=== PATIENT | male | born 1990 | race Caucasian/White ===

== ENCOUNTER 2024-01-22 02:11 | Emergency (ER) | payer BC ==
[2024-01-22 02:53] LABS: #Basophils 0.06 10x3/uL (0.0-0.2); %Basophils 0.4 % (0.0-1.0); %Eosinophils 0.9 % (0.0-10.0); %Lymphocytes 16.7 % (21.0-51.0); %Monocytes 6.3 % (0.0-10.0); %Neutrophils 75.4 % (42.0-75.0); Hematocrit 45.5 % (42.0-52.0); Hemoglobin 15.8 g/dL (14.0-18.0); Mean Corpuscular HGB CONC 34.7 g/dL (32.0-36.0); Mean Corpuscular Hemoglobin 31.7 pg (27.0-31.0); Mean Corpuscular Volume 91.2 fL (78.0-98.0); Mean Platelet Volume 10.6 fL (7.4-10.4); Platelet Count 173 10x3/uL (130-400); RBC Distribution Width 11.9 % (11.5-14.5); Red Blood Cell (RBC) Count 4.99 mill/uL (4.70-6.10)
[2024-01-22 03:15] LABS: Troponin I Less than 0.010 ng/mL (< 0.028)
[2024-01-22 03:17] LABS: ALT (SGPT) 21 U/L (8-55); AST (SGOT) 22 U/L (5-34); Albumin 4.3 g/dL (3.5-5.0); Alkaline Phosphatase 84 U/L (40-110); Anion Gap 13 mmol/L (10-20); BUN (Urea Nitrogen) 20 mg/dL (8.9-20.6); Bilirubin, Total 0.5 mg/dL (0.2-1.2); Calc. Creatinine Clearance 0 mL/min (70-130); Calcium 9.5 mg/dL (7.8-10.44); Carbon Dioxide 25 mmol/L (22-29); Chloride 109 mmol/L (98-107); Estimated GFR 94; Globulin 2.6 g/dL (2.4-3.5); Glucose 111 mg/dL (70-105); Protein, Total 6.9 g/dL (6.0-8.3); Sodium 143 mmol/L (136-145)
[2024-01-22 04:47] LABS: Troponin I Less than 0.010 ng/mL (< 0.028)
== END 2024-01-22 05:01 | disposition home or self-care (01) ==
LOC: ERS 02:11
DX: R07.89 Other chest pain (principal)
CPT/HCPCS: 36415; 71045; 80053; 84484; 85025; 85379; 93005